=== PATIENT | male | born 1955 | race Caucasian/White ===

== ENCOUNTER 2021-10-13 12:39 | Inpatient (IN) | payer BC ==
[~2021-10-13] VITALS: Ht 193 cm; Wt 115.2 kg
[2021-10-13 12:58] LABS: HEMOGLOBIN 19.6 gm/dl (14.0-17.5); RED BLOOD COUNT 5.79 M/UL (4.20-5.50); WHITE BLOOD COUNT 7.1 K/UL (4.5-11.0)
[2021-10-13] MEDS ORDERED: AMLODIPINE BESY10 MG PO (14:53)
[2021-10-13] MEDS ORDERED: COREG12.5 MG PO (14:53)
[2021-10-13] MEDS ORDERED: WELLBUTRIN XL150 MG PO (14:54)
[2021-10-13] MEDS ORDERED: LIPITOR40 MG PO (14:54)
[2021-10-13] MEDS ORDERED: LEVOTHYROXINE112 MCG PO (14:54)
[2021-10-14 05:15] LABS: HEMOGLOBIN 16.7 gm/dl (14.0-17.5); RED BLOOD COUNT 5.02 M/UL (4.20-5.50)
[2021-10-14 05:56] LABS: BUN/CREATININE RATIO 10 (0-10)
[2021-10-15 05:23] LABS: HEMOGLOBIN 16.8 gm/dl (14.0-17.5); RED BLOOD COUNT 5.03 M/UL (4.20-5.50); WHITE BLOOD COUNT 7.1 K/UL (4.5-11.0)
[2021-10-16 06:29] LABS: HEMOGLOBIN 16.7 gm/dl (14.0-17.5); RED BLOOD COUNT 4.97 M/UL (4.20-5.50); WHITE BLOOD COUNT 6.5 K/UL (4.5-11.0)
[2021-10-16] MEDS ORDERED: CARVEDILOL25 MG PO (16:00)
[2021-10-16] MEDS ORDERED: TAB-A-VITE TA400 MC1 PO (16:00)
[2021-10-16] MEDS ORDERED: ASPIRIN EC81 MG PO (16:00)
[2021-10-16] MEDS ORDERED: AMOX TR-K CLV1 EAC4 PO (16:00)
[2021-10-17] MEDS ORDERED: CATAPRES 0.1MG0.1 MG PO (15:51)
== END 2021-10-17 18:30 | disposition home or self-care (01) | DRG 286 ==
LOC: ER1 12:39 → CCU 15:27 → CDU 15:27 → CCU 18:41
PROVIDERS: Internal Medicine Infectious Disease; Internal Medicine Nephrology; Physician Assistant; ADMIT Internal Medicine
PROC: B24BZZZ Ultrasonography of Heart with Aorta (ICD-10-PCS; 2021-10-14)
PROC: 4A023N7 Measurement of Cardiac Sampling and Pressure, Left Heart, Percutaneous Approach (ICD-10-PCS; principal; 2021-10-15)
PROC: B2111ZZ Fluoroscopy of Multiple Coronary Arteries using Low Osmolar Contrast (ICD-10-PCS; 2021-10-15)
DX: I47.1 Supraventricular tachycardia (principal); J18.9 Pneumonia, unspecified organism; N17.9 Acute kidney failure, unspecified; Z20.822 Contact with and (suspected) exposure to COVID-19; R00.8 Other abnormalities of heart beat; E87.5 Hyperkalemia; I12.9 Hypertensive chronic kidney disease with stage 1 through stage 4 chronic kidney disease, or unspecified chronic kidney disease; N18.32 Chronic kidney disease, stage 3b; R33.9 Retention of urine, unspecified; I95.1 Orthostatic hypotension; D69.6 Thrombocytopenia, unspecified; E03.9 Hypothyroidism, unspecified; I08.1 Rheumatic disorders of both mitral and tricuspid valves; E78.5 Hyperlipidemia, unspecified; Z91.14 Patient's other noncompliance with medication regimen; Z79.01 Long term (current) use of anticoagulants; Z79.82 Long term (current) use of aspirin; Z88.2 Allergy status to sulfonamides; Z81.1 Family history of alcohol abuse and dependence; Z82.49 Family history of ischemic heart disease and other diseases of the circulatory system; Z86.16 Personal history of COVID-19
CPT/HCPCS: ECHO; 0241U; 36415; 70450; 71045; 71046; 78452; 80048; 80053; 81001; 82550; 82553; 82570; 83036; 83605; 83735; 84132; 84133; 84156; 84300; 84439; 84443; 84484; 85025; 85027; 85379; 85610; 86140; 87040; 93005; 93017; 93242; 93306; 94664; 94760; 96374; 96375; 99152; 99285; A9502; C1769; C1894; C9113; J0610; J0692; J0696; J1644; J1650; J2250; J2785; J3010; J7040; Q9965; U0002